=== PATIENT | female | born 1965 | race Caucasian/White ===

== ENCOUNTER → 2019-02-14 | Day surgery (SDC) | payer OTHER ==
[~2019-02-14] MED LIST: ADVIL PO; ASPIRIN81 M1 PO; CIPRO500 MG PO; FLAGYL500MG PO; KETO10TA2 PO; METROPOLOL PO; OMEGA 3 1,0001 EACH PO; PROTONIX40 MG PO; TAGAMET400 MG PO; VALSARTAN-HCTZ1 EAC3 PO; VASERETIC 10-251 TAB
== END | disposition home or self-care (01) ==
LOC: ADM 02-11 09:30 → CIR.AMB 06:47
DX: N84.0 Polyp of corpus uteri (principal)

== ENCOUNTER 2021-10-01 12:15 | Inpatient (IN) | payer OTHER ==
[2021-10-01] MEDS ORDERED: OSCIMIN0.125 MG (16:03)
[2021-10-03] MEDS ORDERED: DICLOFENAC POTA50 MG (14:06)
[2021-10-03] MEDS ORDERED: FAMOTIDINE20 MG (14:06)
[2021-10-06] MEDS ORDERED: TRAMADOL HCL50 MG PO (10:29)
[2021-10-06] MEDS ORDERED: INTESTINEX680 M1 PO (10:30)
[2021-10-06] MEDS ORDERED: LEVSIN/SL0.125 MG SL (10:31)
== END 2021-10-06 12:05 | disposition home or self-care (01) | DRG 331 ==
LOC: SURG 10-03 06:03 → O/R 10-03 06:03 → SURH 10-03 07:00 → SURG 10-03 15:44
PROVIDERS: ADMIT Surgery; ATTEND Surgery
PROC: 0DTN4ZZ Resection of Sigmoid Colon, Percutaneous Endoscopic Approach (ICD-10-PCS; 2021-10-03)
PROC: 0DJD8ZZ Inspection of Lower Intestinal Tract, Via Natural or Artificial Opening Endoscopic (ICD-10-PCS; 2021-10-03)
PROC: 3E0F7SF Introduction of Other Gas into Respiratory Tract, Via Natural or Artificial Opening (ICD-10-PCS; 2021-10-03)
PROC: 4A033R1 Measurement of Arterial Saturation, Peripheral, Percutaneous Approach (ICD-10-PCS; 2021-10-03)
PROC: 0DTP4ZZ Resection of Rectum, Percutaneous Endoscopic Approach (ICD-10-PCS; principal; 2021-10-03 07:00)
PROC: 4A12X4Z Monitoring of Cardiac Electrical Activity, External Approach (ICD-10-PCS; 2021-10-04)
DX: K57.30 Diverticulosis of large intestine without perforation or abscess without bleeding (principal); N73.6 Female pelvic peritoneal adhesions (postinfective); I11.9 Hypertensive heart disease without heart failure; G47.33 Obstructive sleep apnea (adult) (pediatric); D75.1 Secondary polycythemia; E66.8 Other obesity; J32.9 Chronic sinusitis, unspecified